=== PATIENT | female | born 1980 | race Caucasian/White ===

== ENCOUNTER 2017-05-20 21:01 | Emergency (ER) | payer SELFPAY ==
--- NOTE | 2017-05-20 21:31 | PDOC ---
History of Present Illness - History of Present Illness Initial Comments: 05/20/17 21:42 The patient is a 36 year old female, who presents to the emergency department with, progressively worsening lower back pain since last night. The patient states she had a lumbar puncture 3 days ago to rule out aseptic meningitis and states the spinal tap was normal. However, the patient states that since last night she has had progressively worsening lower back pain around the site of the spinal tap. The patient states the lower back pain is made worse while lying down. She denies any recent falls or trauma. She denies any numbness, tingling or loss of sensation. She denies any bowel or bladder incontinence. She denies any weakness. She denies recent chest pain or shortness of breath. PAST MEDICAL HISTORY: Splenectomy PAST SURGICAL HISTORY: Splenectomy FAMILY HISTORY: no pertinent history SOCIAL HISTORY: Pt lives with family and is employed. MEDICATIONS: reviewed ALLERGIES: As per nursing notes Review of Systems General: No fevers or chills, no weakness, no weight loss HEENT: No change in vision. No sore throat,. No ear pain CardioVascular: No chest pain or shortness of breath Respiratory:No cough, or wheezing. Gastrointestinal: no nausea, vomiting, diarrhea or constipation, No rectal bleeding Genitourinary: No dysuria, hematuria, or frequency Musculoskeletal: (+) Lower back pain. No joint pain. No neck pain. Neurologic: No headache, vertigo, dizziness or loss of consciousness Psychiatric: nor depression Skin: No rashes or easy bruising Endocrine: no increased thirst or abnormal weight change Allergic: no skin or latex allergy All other systems reviewed and normal GENERAL: The patient is awake, alert, and fully oriented, in no acute distress. HEAD: Normal with no signs of trauma. EYES: Pupils equal, round and reactive to light, extraocular movements intact, sclera anicteric, conjunctiva clear. BACK: (+) Multiple areas that appear to be puncture sites for the lumbar puncture with mild ecchymosis. No increase in warmth. No drainage or purulence. EXTREMITIES: Normal range of motion, no edema. NEUROLOGICAL: Normal speech, normal gait. PSYCH: Normal mood, normal affect. SKIN: Warm, Dry, normal turgor, no rashes or lesions noted. <Claude Garrido - Last Filed: 05/20/17 22:03> - General History Source: Patient Exam Limitations: No Limitations - History of Present Illness Initial Comments: A portion of this note was documented by scribe services under my direction. I have reviewed the details of the note, within reason, and agree with the documentation. The case summary and management plan written by me. Assessment and plan: This is a 36-year-old female who had a lumbar puncture and now is complaining of increased pain in the area. Patient denies any neurological complaints no change in bowel or bladder continence no numbness or tingling of her extremities. Patient denies any fevers or chills. Patient had an ultrasound of the area that does not show any collections other than some small tissue edema. Patient cannot take anti-inflammatories so was told to take Tylenol and ice and [id number] lidocaine patch <Chance Dhillon I - Last Filed: 05/20/17 22:20> - General Chief Complaint: Back Pain Stated Complaint: LOW BACK PAIN Time Seen by Provider: 05/20/17 21:06 Past History <Claude Garrido - Last Filed: 05/20/17 22:03> <Chance Dhillon I - Last Filed: 05/20/17 22:20> - Past Medical History Allergies/Adverse Reactions: Allergies Allergy/AdvReac Type Severity Reaction Status Date / Time Sulfa (Sulfonamide Allergy Mild Rash Verified 05/20/17 21:05 Antibiotics) NSAIDS (Non-Steroidal AdvReac Mild Verified 05/20/17 21:05 Anti-Inflamma Home Medications: Ambulatory Orders NK [No Known Home Medication] 05/20/17 *DC/Admit/Observation/Transfer - Attestations Scribe Attestion: 05/20/17 21:50 Documentation prepared by Claude Garrido, acting as medical illustrator for Chance Dhillon MD. <Claude Garrido - Last Filed: 05/20/17 22:03> - Discharge Dispostion Admit: No <Chance Dhillon I - Last Filed: 05/20/17 22:20> Diagnosis at time of Disposition: Low back pain Qualifiers: Chronicity: acute Back pain laterality: unspecified Sciatica presence: without sciatica Qualified Code(s): M54.5 - Low back pain - Discharge Dispostion Disposition: HOME Condition at time of disposition: Good - Referrals Referrals: Chalino Sosa MD [Primary Care Provider] - - Patient Instructions Additional Instructions: For the pain take Tylenol 2 extra strength tablets every 4-6 hours if needed. In addition to that purchase some lidocaine patches they are called salonpas and use as directed on the box they are [id number]. Return if you develop any fever, chills, numbness or weakness in your legs or neurological symptoms. Return to the emergency department immediately with ANY new, persistent or worsening symptoms. Continue any medications as previously prescribed by your physician. You should follow up with your primary doctor as soon as possible regarding today's emergency department visit. . Please make sure your doctor reviews the results of your emergency evaluation. Thank you for coming to the Emergency Department today for your care. It was a pleasure to see you today. Please note that your evaluation is INCOMPLETE until you follow-up with your doctor. - Post Discharge Activity
[2017-05-20 22:25] VITALS: BP 148/97; PULSE 110; TEMP 98.3; BMI 40.7
== END 2017-05-20 22:25 | disposition home or self-care (01) ==
LOC: FER 21:01
DX: M54.5 Low back pain (principal)
CPT/HCPCS: 76604; 99282-25

== ENCOUNTER 2017-07-20 04:36 | Inpatient (IN) | payer MEDICARE ==
[2017-07-20] MEDS ORDERED: MEROPENEM 1 GM in DEXTROSE 5%-WATER 100 ML IVPB ONE (05:02)
[2017-07-20] MEDS ORDERED: morphine CARPU-JECT 2 MG/1 ML DISP.SYRIN IVPUSH ONE (05:06)
[2017-07-20] MEDS ORDERED: SODIUM CHLORIDE 1,000 ML IV STA ×2 (05:08→06:24)
--- NOTE | 2017-07-20 05:08 | PDOC ---
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 Was originally diagnosed with UTi 10 days ago and got a 5 day course of macrobid for 5 days, after which further testing including a CT scan led to a diagnosis of Right pyelonephritis and a 5 day course of Bactrim. The pain has been increasing each days since then, now 9/10 on palpation of both CVA as well as dysuria with dark urine and febrile sensation. Patient not usually prone to UTI's. Last course of prednisone 6 weeks ago. Past History - Past Medical History Allergies/Adverse Reactions: Allergies Allergy/AdvReac Type Severity Reaction Status Date / Time codeine Allergy Severe Rash Verified 07/20/17 05:39 Sulfa (Sulfonamide Allergy Mild Rash Verified 07/20/17 04:38 Antibiotics) metoclopramide [From Reglan] Allergy Verified 07/20/17 04:38 NSAIDS (Non-Steroidal AdvReac Mild Verified 07/20/17 04:38 Anti-Inflamma Home Medications: Ambulatory Orders NK [No Known Home Medication] 07/20/17 Anemia: Yes (ITP) COPD: No - Surgical History Abdominal Surgery: Yes (SPLEENECTOMY) Appendectomy: Yes Cholecystectomy: Yes - Reproductive History Tubal Ligation: Yes - Immunization History Immunization Up to Date: Yes - Suicide/Smoking/Psychosocial Hx Smoking History: Never smoked Have you smoked in the past 12 months: No Number of Cigarettes Smoked Daily: 2 Information on smoking cessation initiated: No Hx Alcohol Use: No Drug/Substance Use Hx: No Substance Use Type: None Review of Systems - Review of Systems Able to Perform ROS?: Yes Constitutional: Yes: Chills, Fever HEENTM: No: Symptoms Reported Respiratory: No: Symptoms reported Cardiac (ROS): No: Symptoms Reported ABD/GI: No: Symptoms Reported : Yes: See HPI Musculoskeletal: No: Symptoms Reported Integumentary: No: Symptoms Reported Neurological: No: Symptoms reported All Other Systems: Reviewed and Negative *Physical Exam - Vital Signs Last Vital Signs Temp Pulse Resp BP Pulse Ox 98.2 F 91 H 18 128/79 98 07/20/17 05:00 07/20/17 04:38 07/20/17 04:38 07/20/17 04:38 07/20/17 04:38 - Physical Exam General Appearance: Yes: Nourished, Moderate Distress, Obese HEENT: positive: EOMI, PRASANNA, Normal ENT Inspection Respiratory/Chest: positive: Lungs Clear, Normal Breath Sounds. negative: Chest Tender, Respiratory Distress Cardiovascular: positive: Regular Rhythm, Regular Rate, S1, S2 Gastrointestinal/Abdominal: positive: Normal Bowel Sounds, Soft, Protuberent. negative: Tender Musculoskeletal: positive: CVA Tenderness (R) (exquisite tenderness), CVA Tenderness (L) Extremity: positive: Normal Capillary Refill, Normal Inspection, Normal Range of Motion Integumentary: positive: Normal Color, Dry, Warm Neurologic: positive: Fully Oriented, Alert, Normal Mood/Affect, Normal Response ED Treatment Course - LABORATORY CBC & Chemistry Diagram: 07/20/17 05:30 07/20/17 05:30 Medical Decision Making - Medical Decision Making 07/20/17 05:20 36f with h/o ITP s.p splenectomy presents with 10 days of increasingly painful pyelonephritis. Will start with basic labs, blood and urine cultures, Meropenem IV 1g and 2mg of morphine due to her NSAID allergy. Although there is no fever recorded on this patient, it is notable that did take 2 extra strength tylenol when she felt febrile earlier. In addition, she is exquisitely tender of the the right and left flank. The choice of Meropenem as an empiric antibiotic today is justified by the presence of risk factors for an MDR gram negative infection including use of TMP /SMX within the past 3 month and splenectomy status The patient will most likely be admitted to med surg. 07/20/17 06:55 Patient signed out to Dr. Maldonado *DC/Admit/Observation/Transfer Diagnosis at time of Disposition: Pyelonephritis - Referrals - Patient Instructions - Post Discharge Activity
--- NOTE | 2017-07-20 05:27 | PDOC ---
Attending Attestation - Resident Resident Name: DanaJuvenal - ED Attending Attestation I have performed the following: I have examined & evaluated the patient, The case was reviewed & discussed with the resident, I agree w/resident's findings & plan, Exceptions are as noted - HPI HPI: 07/20/17 05:23 "The patient is a year old female, with a significant past medical history of ITP (s/p splenectomy, intermittently on steroids), who presents to the emergency department via EMS with bilateral flank pain and dysuria for 10 days. Per patient, she was initially on Macrobid for 5 days. Pt had no improvement in her symptoms. She returned to her PCP, who ordered CT scan that revealed pyelonephritis and started her on bactrim. She completed her course of bactrim but states that her symptoms have only worsened. She reports bilateral flank pain, worse on the right. The patient describes her urine as dark in coloration. She reports subjective fevers as well, for which she took tylenol this AM. She denies recent nausea, vomit, diarrhea or constipation. Denies abdominal pain. She denies recent chest pain or shortness of breath. Past surgical history: Splenectomy. Social history: Nonsmoker. Denies EtOH use and recreational drug use. " - Physicial Exam PE: 07/20/17 05:26 "GENERAL: Awake, alert, and fully oriented, in no acute distress. HEAD: No signs of trauma EYES: PERRLA, EOMI, sclera anicteric, conjunctiva clear ENT: Auricles normal inspection, hearing grossly normal, nares patent, oropharynx clear without exudates. Moist mucosa NECK: Nontender, no stepoffs, Normal ROM, supple, no lymphadenopathy, JVD, or masses LUNGS: Breath sounds equal, clear to auscultation bilaterally. No wheezes, and no crackles HEART: Regular rate and rhythm, normal S1 and S2, no murmurs, rubs or gallops ABDOMEN: +Suprapubic TTP, normoactive bowel sounds. No guarding, no rebound. No masses BACK: + R CVAT EXTREMITIES: Normal range of motion, no edema. No clubbing or cyanosis. No cords, erythema, or tenderness NEUROLOGICAL: Cranial nerves II through XII intact. 5/5 strength and sensation in all extremities, Normal speech, normal gait, normal cerebellar function SKIN: Warm, Dry, normal turgor, no rashes or lesions noted. " - Medical Decision Making 07/20/17 05:27 36 F with likely pyelonephritis refractory to outpt tx with macrobid and bactrim. Pt with subjective fevers at home but afebrile here. - Labs, cultures - IV abx - Admit <Cody Cazares - Last Filed: 07/20/17 05:23> Attestations - Attestations 07/20/17 06:22 Documentation prepared by Matthias Dobbins, acting as medical office asst for Cody Cazares MD. <Matthias Dobbins - Last Filed: 07/20/17 06:23>
[2017-07-20] MEDS ORDERED: morphine CARPU-JECT 2 MG/1 ML DISP.SYRIN ONE (05:30)
[2017-07-20 05:49] LABS: BASO % 0.5 % (0-2.0); EOS % 3.3 % (0-4.5); HEMATOCRIT 41.1 % (32.4-45.2); HEMOGLOBIN 13.7 GM/dL (10.7-15.3); LYMPH % 40.4 % (8-40); MCH 32.1 pg (25.7-33.7); MCHC 33.3 g/dl (32.0-36.0); MEAN CELL VOLUME 96.3 fl (80-96); MEAN PLT VOLUME 9.1 fl (7.5-11.1); NEUT % 45.8 % (42.8-82.8); PLATELET COUNT 414 K/MM3 (134-434); RBC 4.26 M/mm3 (3.60-5.2); RDW 14.1 % (11.6-15.6); WHITE BLOOD COUNT 14.5 K/mm3 (4.0-10.0)
[2017-07-20 06:08] LABS: ALBUMIN 3.6 g/dl (3.4-5.0); ALK PHOS 103 U/L (45-117); ANION GAP 9 (8-16); BILIRUBIN,TOTAL 0.3 mg/dL (0.2-1.0); BLOOD UREA NITROGEN 12 mg/dL (7-18); CALCIUM 8.3 mg/dL (8.5-10.1); CHLORIDE 107 mmol/L (98-107); CO2 23 mmol/L (21-32); CREATININE 0.6 mg/dL (0.55-1.02); GLUCOSE,RANDOM 112 mg/dL (74-106); SGPT/ALT 29 U/L (12-78); SODIUM 139 mmol/L (136-145); TOT PROT 6.5 g/dl (6.4-8.2)
[2017-07-20 06:15] LABS: POTASSIUM 4.6 mmol/L (3.5-5.1); SGOT/AST 31 U/L (15-37)
[2017-07-20] MEDS ORDERED: KETOROLAC TROMETHAMINE 30 MG/1 ML VIAL IVPUSH ONE (06:24)
--- NOTE | 2017-07-20 07:13 | PDOC ---
*Physical Exam - Vital Signs Last Vital Signs Temp Pulse Resp BP Pulse Ox 98.2 F 91 H 18 128/79 98 07/20/17 05:00 07/20/17 04:38 07/20/17 04:38 07/20/17 04:38 07/20/17 04:38 - Physical Exam Comments: 07/20/17 07:16 General Appearance: Nourished. No Apparent Distress HEENT: EOMI, PRASANNA. No Pharyngeal Erythema, Tonsillar Exudate, Tonsillar Erythema Neck: No Cervical Lymphadenopathy Respiratory/Chest: Lungs Clear, Normal Breath Sounds. No Crackles, Rales, Rhonchi, Wheezing Cardiovascular: Regular Rhythm, Regular Rate. No Murmur, Gallops, Rubs Gastrointestinal/Abdominal: Normal Bowel Sounds, Soft. No Guarding, Rebound, Tenderness Musculoskeletal: Bilateral CVA Tenderness more pronounced on the right Extremity: Normal Capillary Refill Integumentary: Normal Color, Dry, Warm Neurologic: Fully Oriented, Alert, Normal Mood/Affect, Normal Response, ED Treatment Course - LABORATORY CBC & Chemistry Diagram: 07/20/17 05:30 07/20/17 05:30 - ADDITIONAL ORDERS Additional order review: Laboratory Results 07/20/17 05:30 Sodium 139 Potassium 4.6 Chloride 107 Carbon Dioxide 23 Anion Gap 9 BUN 12 Creatinine 0.6 Creat Clearance w eGFR > 60 Random Glucose 112 H Calcium 8.3 L Total Bilirubin 0.3 D AST 31 ALT 29 Alkaline Phosphatase 103 Total Protein 6.5 Albumin 3.6 07/20/17 05:30 RBC 4.26 MCV 96.3 H MCHC 33.3 RDW 14.1 MPV 9.1 D Neutrophils % 45.8 D Lymphocytes % 40.4 H D Monocytes % 10.0 Eosinophils % 3.3 D Basophils % 0.5 - Medications Given in the ED: ED Medications Discontinued Medications Generic Name Dose Route Start Last Admin Trade Name Freq PRN Reason Stop Dose Admin Meropenem 1 gm/ Dextrose 100 mls @ 200 mls/hr 07/20/17 05:02 07/20/17 05:57 IVPB 07/20/17 05:31 200 mls/hr ONCE ONE Administration Sodium Chloride 1,000 mls @ 1,000 mls/hr 07/20/17 05:08 07/20/17 05:57 Normal Saline - IV 07/20/17 06:07 1,000 mls/hr ASDIR STA Administration Ketorolac Tromethamine 15 mg 07/20/17 06:24 07/20/17 06:43 Toradol Injection - IVPUSH 07/20/17 06:25 Not Given ONCE ONE Morphine Sulfate 2 mg 07/20/17 05:06 07/20/17 05:57 Morphine Injection - IVPUSH 07/20/17 05:07 2 mg ONCE ONE Administration Progress Note - Progress Note Progress Note: The patient is a 36 year old female who was diagnosed with pyelonephritis on an outpatient basis with continued worsening symptoms despite outpatient antibiotic treatment. The patient is pending a UA and likely admission for iv antibiotics. Medical Decision Making - Medical Decision Making 07/20/17 09:40 We discussed the case with the hospitalist team who accepted the patient for admission. We discussed the results and plan with the patient who voiced understanding and is agreeable with the plan. *DC/Admit/Observation/Transfer Diagnosis at time of Disposition: Pyelonephritis - Discharge Dispostion Condition at time of disposition: Stable Decision to Admit order: Yes - Referrals - Patient Instructions - Post Discharge Activity
[2017-07-20] MEDS ORDERED: morphine CARPU-JECT 4 MG/1 ML DISP.SYRIN IVPUSH ONE (08:41)
[2017-07-20] MEDS ORDERED: morphine SULFATE 4 MG/ML VIAL ONE (08:51)
[2017-07-20 09:07] LABS: URINE APPEARANCE CLEAR; URINE BILIRUBIN NEGATIVE (<2.0 mg/dL); URINE BLOOD 2+ (NEGATIVE); URINE COLOR LTYELLOW; URINE GLUCOSE (UA) NEGATIVE (NEGATIVE); URINE KETONE NEGATIVE (NEGATIVE); URINE LEUK ESTERASE NEGATIVE (NEGATIVE); URINE NITRITE NEGATIVE (NEGATIVE); URINE UROBILINOGEN NEGATIVE mg/dL (0.2-1.0)
[2017-07-20 09:20] LABS: URINE PROTEIN 2+ (NEGATIVE)
[2017-07-20 09:23] LABS: EPI CELLS RARE /HPF (FEW)
--- NOTE | 2017-07-20 11:04 | HP ---
Admitting History and Physical - Admission Chief Complaint: back pain, failed outpt UTI therapy History of Present Illness: This is a 36 year old female with pmhx of ITP Since age 9, s/p splenectomy 2006 , who presents with worsening back pain. 10 days ago pt was seen and treated in urgent care for UTI. Put on macrobid after 5 days symptoms were not improving, she was then put on keflex and saw now improvement. Last night she had subjective fever, back pain worsened R > L and she continues to have dysuria and frequency with urination. This is her first UTI after pregnancies. She denies sob, cp, abdominal pain, n/v. 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 History of Recent Travel: No Home Medications - Allergies Allergies/Adverse Reactions: Allergies Allergy/AdvReac Type Severity Reaction Status Date / Time codeine Allergy Severe Rash Verified 07/20/17 05:39 Sulfa (Sulfonamide Allergy Mild Rash Verified 07/20/17 04:38 Antibiotics) metoclopramide [From Reglan] Allergy Verified 07/20/17 04:38 NSAIDS (Non-Steroidal AdvReac Mild Verified 07/20/17 04:38 Anti-Inflamma - Home Medications Home Medications: Ambulatory Orders NK [No Known Home Medication] 07/20/17 Review of Systems - Review of Systems Constitutional: reports: No Symptoms, Fever Eyes: reports: No Symptoms HENT: reports: No Symptoms Neck: reports: No Symptoms Cardiovascular: reports: No Symptoms Respiratory: reports: No Symptoms Gastrointestinal: reports: No Symptoms Genitourinary: reports: Flank Pain Musculoskeletal: reports: No Symptoms Integumentary: reports: No Symptoms Neurological: reports: No Symptoms Endocrine: reports: No Symptoms Hematology/Lymphatic: reports: No Symptoms Psychiatric: reports: No Symptoms Physical Examination Vital Signs: Vital Signs Temperature 98.2 F 07/20/17 05:00 Pulse Rate 75 07/20/17 09:42 Respiratory Rate 20 07/20/17 09:42 Blood Pressure 112/60 07/20/17 09:42 O2 Sat by Pulse Oximetry (%) 98 07/20/17 09:42 Constitutional: Yes: Calm Eyes: Yes: Conjunctiva Clear HENT: Yes: Atraumatic Neck: Yes: Supple Cardiovascular: Yes: Regular Rate and Rhythm, S1, S2 Respiratory: Yes: Regular, CTA Bilaterally Gastrointestinal: Yes: Normal Bowel Sounds, Soft, Abdomen, Obese Renal/: Yes: CVA Tenderness - Left, CVA Tenderness - Right (R>L) Musculoskeletal: Yes: WNL, Back Pain Edema: Yes (pedal ) Edema: LLE: Trace, RLE: Trace Integumentary: Yes: Tattoos Neurological: Yes: Alert, Oriented, Cran Nerves II-XII Intact Psychiatric: Yes: Alert, Oriented Labs: CBC, BMP 07/20/17 05:30 07/20/17 05:30 Imaging - Results Cat Scan: Pending, Other (s) Problem List - Problems (1) Pyelonephritis Code(s): N12 - TUBULO-INTERSTITIAL NEPHRITIS, NOT SPCF ACUTE OR CHRONIC (2) Low back pain Code(s): M54.5 - LOW BACK PAIN Qualifiers: Chronicity: acute Back pain laterality: unspecified Sciatica presence: without sciatica Qualified Code(s): M54.5 - Low back pain Assessment/Plan Assessment: 36 year old female with ITP s/p splenectomy admitted with failed outpt UTI therapy and pyleonephritis Plan: 1. Sepsis d/t R sided pyleo - - UA negative, blood/urine cx pending - Obtain non contrast CT - Start zosyn - Continue IVF - ID consulted 2. DVT - Lovenox sq Visit type - Emergency Visit Emergency Visit: Yes ED Registration Date: 07/20/17 Care time: The patient presented to the Emergency Department on the above date and was hospitalized for further evaluation of their emergent condition. - New Patient This patient is new to me today: Yes Date on this admission: 07/20/17 - Critical Care Critical Care patient: No Hospitalist Screening - Colonoscopy Questionnaire Colonoscopy Questionnaire: Colonoscopy Questionnaire - Patient: 50 - 75 years old and never had a screening colonoscopy: Unknown History of colon or rectal polyps, or CA: Unknown History of IBD, Crohn's disease or UC: Unknown History of abdominal radiation therapy as a child: Unknown - Relative: 1 with colon or rectal CA, or polyps at age 60 or younger: Unknown Colon or rectal CA diagnosed at age 45 or younger: Unknown Multiple relatives with colon or rectal CA: Unknown - Outcome: Screening Result: Negative Screen
[2017-07-20] MEDS ORDERED: ACETAMINOPHEN 325 MG TABLET (FP) PO PRN (11:19)
[2017-07-20] MEDS ORDERED: KETOROLAC TROMETHAMINE 15 MG/ML VIAL IVPUSH PRN (11:19)
[2017-07-20] MEDS ORDERED: oxyCODONE HCL 5 MG TABLET PO PRN (11:19)
[2017-07-20] MEDS ORDERED: SODIUM CHLORIDE 1,000 ML IV SCH (11:30)
[2017-07-20] MEDS ORDERED: oxyCODONE HCL 5 MG TABLET ONE (13:20)
[2017-07-20] MEDS ORDERED: ACETAMINOPHEN 325 MG TABLET (FP) ONE (13:25)
--- NOTE | 2017-07-20 14:51 | CON.ID ---
Consult Consult Specialty:: infectious diseases Reason for Consultation:: pyelonephritis rt side - History of Present Illness Chief Complaint: abd pain and flank pain rt side History of Present Illness: this is a 36 y/o obese femal who developed abd pain and [facility] where she was diagnosed with uti and was started on macrobid patient did not improve with that and developed falank pain so was switched to another abx she according to her did not still improve and came to the hospital c/o of rt flank pain currently she does complain of rt flank pain she was worked up and foud to have leukocytosis and ct scan did not show much findings - History Source History Provided By: Patient Limitations to Obtaining History: No Limitations - Past Surgical History Past Surgical History: Yes: Appendectomy, Cholecystectomy, Splenectomy - Alcohol/Substance Use Hx Alcohol Use: No History of Substance Use: reports: None - Smoking History Smoking history: Current every day smoker Have you smoked in the past 12 months: No Aproximately how many cigarettes per day: 2 - Social History ADL: Independent 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 History of Recent Travel: No Home Medications - Allergies Allergies/Adverse Reactions: Allergies Allergy/AdvReac Type Severity Reaction Status Date / Time codeine Allergy Severe Rash Verified 07/20/17 05:39 Sulfa (Sulfonamide Allergy Mild Rash Verified 07/20/17 04:38 Antibiotics) metoclopramide [From Reglan] Allergy Verified 07/20/17 04:38 NSAIDS (Non-Steroidal AdvReac Mild Verified 07/20/17 04:38 Anti-Inflamma - Home Medications Home Medications: Ambulatory Orders NK [No Known Home Medication] 07/20/17 Review of Systems - Review of Systems Constitutional: reports: Fever Eyes: reports: No Symptoms HENT: reports: No Symptoms, Ocular Prosthesis Cardiovascular: reports: No Symptoms Respiratory: reports: No Symptoms Gastrointestinal: reports: No Symptoms Genitourinary: reports: Flank Pain, Other Musculoskeletal: reports: No Symptoms Integumentary: reports: No Symptoms Neurological: reports: No Symptoms Endocrine: reports: No Symptoms Hematology/Lymphatic: reports: No Symptoms Psychiatric: reports: No Symptoms Physical Exam Vital Signs: Vital Signs Temperature 98.5 F 07/20/17 13:50 Pulse Rate 80 07/20/17 13:50 Respiratory Rate 20 07/20/17 13:50 Blood Pressure 144/61 07/20/17 13:50 O2 Sat by Pulse Oximetry (%) 100 06/07/18 13:50 Constitutional: Yes: Well Nourished, Calm, Mild Distress, Obese Eyes: Yes: Conjunctiva Clear Neck: Yes: Supple, Trachea Midline Cardiovascular: Yes: Regular Rate and Rhythm Respiratory: Yes: Regular, CTA Bilaterally Gastrointestinal: Yes: Normal Bowel Sounds, Soft Renal/: Yes: CVA Tenderness - Right Musculoskeletal: Yes: WNL Extremities: Yes: WNL Neurological: Yes: Alert, Oriented Psychiatric: Yes: Alert, Oriented Labs: CBC, BMP 07/20/17 05:30 07/20/17 05:30 Imaging - Results Cat Scan: Report Reviewed, Image Reviewed Assessment/Plan this patient who had utii and now wiht flank pain with leukocytosis who ahs been treated for uti with multiple abx ct scan with no real findings uti rt flank pain pyelo obesity plan will start patient on zosyn hydration await for cx reports will make final decision then
[2017-07-20] MEDS ORDERED: morphine CARPU-JECT 2 MG/1 ML DISP.SYRIN IVPUSH PRN (15:10)
[2017-07-20 15:11] VITALS: BMI 37.1
[2017-07-20] MEDS ORDERED: PIPERACILLIN/TAZOBACTAM 3.375 GM VIAL IVPB ONE ×2 (15:25→17:46)
[2017-07-20] MEDS ORDERED: DEXTROSE 5%-WATER - 50 ML IVPB ONE ×2 (15:25→17:46)
[2017-07-20] MEDS: PIPERACILLIN/TAZOB 3.375 GM 3.375 GM in DEXTROSE 5%-WATER - 50 ML IVPB SCH ×2 (15:28→17:51)
[2017-07-20] MEDS ORDERED: PIPERACILLIN/TAZOB 3.375 GM 3.375 GM in DEXTROSE 5%-WATER - 50 ML IVPB SCH (15:30)
[2017-07-20 16:45] VITALS: BP 140/74; PULSE 81; TEMP 98.7
[2017-07-20] MEDS ORDERED: oxyCODONE HCL 5 MG TABLET PO ONE (18:00)
[2017-07-21] MEDS ORDERED: ENOXAPARIN NA (PORCINE) 40 MG/0.4 ML DISP.SYRIN SQ SCH (10:00)
== END 2017-07-20 19:15 | disposition left against medical advice (07) | DRG 463 ==
LOC: JER 04:36 → JERBED 09:40 → J8W 14:09
PROVIDERS: ADMIT Hospitalist; ATTEND Nurse Practitioner Acute Care
DX: N10 Acute pyelonephritis (principal); E66.9 Obesity, unspecified; Z68.37 Body mass index [BMI] 37.0-37.9, adult; F17.210 Nicotine dependence, cigarettes, uncomplicated; M54.5 Low back pain
CPT/HCPCS: 36415; 74176; 80053; 81003; 81015; 84703; 85025; 87040; 87086; 99284-25; J7030

== ENCOUNTER 2017-08-07 06:54 | Emergency (ER) | payer SELFPAY ==
[2017-08-07 07:17] VITALS: TEMP 98.2; BMI 41.1
[2017-08-07] MEDS ORDERED: ONDANSETRON 4 MG/2 ML VIAL IVPUSH ONE (07:30)
[2017-08-07] MEDS ORDERED: morphine CARPU-JECT 4 MG/1 ML DISP.SYRIN IVPUSH ONE ×2 (07:30→09:07)
[2017-08-07] MEDS ORDERED: SODIUM CHLORIDE 1,000 ML IV STA (07:30)
--- NOTE | 2017-08-07 07:33 | PDOC ---
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 The pain feels similiar to 2 weeks ago when she was dx with the pyelonephritis but worse. pt states she was fine from when she left until monday and hasnt received any further treatment or abx. on exam pt well appearing in on distress abd soft nontender, +cva tenderness on R suspect possible pyelo, consider stone, ?msk cause will obtain blood work, ua if pt has +hematuria, will obtain US pain meds/abx anticiptae admission - Physicial Exam PE: 08/07/17 11:50 see above - Medical Decision Making 08/07/17 11:47 pt labs reviewed, noted for leukocyotsis , suspect may be due to recent infusion pts CT negative UA is clear without signs of infection, culture sent on reexam, pt does have some muscular tenderness in the L lower back - ?msk in nature will treat pt supportively will have pt fu with PMD return precautions were dsicussed I discussed the physical exam findings, ancillary test results and final diagnoses with the patient. I answered all of the patient's questions. The patient was satisfied with the care received and felt comfortable with the discharge plan and treatment plan. The patient will call their primary care physician within 24 hours to arrange follow-up and will return to the Emergency Department with any new, persistent or worsening symptoms.
[2017-08-07] MEDS ORDERED: MORPHINE SULFATE 10 MG/1 ML *VIAL ONE ×2 (07:49→09:11)
[2017-08-07] MEDS ORDERED: ALBUTEROL SO4 2.5/IPRATROPIUM 0.5 INH SOL 3 ML VIAL.NEB. NEB ONE (07:50)
[2017-08-07] MEDS ORDERED: ONDANSETRON 4 MG/2 ML VIAL ONE (07:50)
--- NOTE | 2017-08-07 08:11 | PDOC ---
History of Present Illness - General Chief Complaint: Pain, Acute Stated Complaint: LOWER RIGHT ABDOMINAL PAIN Time Seen by Provider: 08/07/17 07:19 History Source: Patient Exam Limitations: No Limitations - History of Present Illness Initial Comments: 08/07/17 08:05 Patient is a 36F with history of ITP and splenectomy here today complaining of 1 day of right flank pain. Patient was admitted two weeks ago with pyelonephritis diagnosis. Patient had normal UA, but was on antibiotics before draw and was symptomatic. CT scan at the time showed no intra-abdominal process. Patient left AMA after receiving zosyn and took no medications as outpatient. Patient endorses fevers, chills, nausea, and vomiting. Patient denies chest pain, shortness of breath. Denies dysuria and changes in urination. Patient has long history of recurrent UTIs. Patient received gamma globulin transfusion several days ago. Past History - Past Medical History Allergies/Adverse Reactions: Allergies Allergy/AdvReac Type Severity Reaction Status Date / Time codeine Allergy Severe Rash Verified 08/07/17 06:56 Sulfa (Sulfonamide Allergy Mild Rash Verified 08/07/17 06:56 Antibiotics) metoclopramide [From Reglan] Allergy Verified 08/07/17 06:56 NSAIDS (Non-Steroidal AdvReac Mild Verified 08/07/17 06:56 Anti-Inflamma Home Medications: Ambulatory Orders Tramadol HCl 50 mg PO QID PRN #12 tablet MDD 4 08/07/17 Anemia: Yes (ITP) COPD: No - Surgical History Abdominal Surgery: Yes (SPLEENECTOMY) Appendectomy: Yes Cholecystectomy: Yes - Reproductive History Tubal Ligation: Yes - Immunization History Immunization Up to Date: Yes - Suicide/Smoking/Psychosocial Hx Smoking History: Never smoked Have you smoked in the past 12 months: No Number of Cigarettes Smoked Daily: 2 Information on smoking cessation initiated: No 'Breaking Loose' booklet given: 07/20/17 Hx Alcohol Use: No Drug/Substance Use Hx: No Substance Use Type: None Hx Substance Use Treatment: No Review of Systems - Review of Systems Comments:: 08/07/17 08:11 GENERAL/CONSTITUTIONAL: No fever or chills. No weakness. HEAD, EYES, EARS, NOSE AND THROAT: No change in vision. No sore throat. CARDIOVASCULAR: No chest pain or shortness of breath RESPIRATORY: No cough, wheezing, or hemoptysis. GASTROINTESTINAL: +nausea, vomiting. No diarrhea or constipation. GENITOURINARY: No dysuria, frequency, or change in urination. MUSCULOSKELETAL: No joint or muscle swelling or pain. No neck or back pain. SKIN: No rash NEUROLOGIC: No headache, vertigo, loss of consciousness, or change in strength/ sensation. ENDOCRINE: No increased thirst. No abnormal weight change HEMATOLOGIC/LYMPHATIC: No anemia, easy bleeding, or history of blood clots. ALLERGIC/IMMUNOLOGIC: No hives or skin allergy. *Physical Exam - Vital Signs Last Vital Signs Temp Pulse Resp BP Pulse Ox 98.2 F 84 20 117/71 98 08/07/17 06:57 08/07/17 06:57 08/07/17 06:57 08/07/17 06:57 08/07/17 06:57 - Physical Exam Comments: 08/07/17 08:11 GENERAL: Awake, alert, and fully oriented HEAD: No signs of trauma, normocephalic, atraumatic EYES: PERRLA, EOMI, sclera anicteric, conjunctiva clear ENT: Auricles normal inspection, hearing grossly normal, nares patent, oropharynx clear without exudates. Moist mucosa NECK: Normal ROM, supple, no lymphadenopathy, JVD, or masses LUNGS: No distress, speaks full sentences, clear to auscultation bilaterally HEART: Regular rate and rhythm, normal S1 and S2, no murmurs, rubs or gallops, peripheral pulses normal and equal bilaterally. ABDOMEN: +R sided CVA, mild suprapubic tenderness, no rebound/guarding. EXTREMITIES: Normal inspection, Normal range of motion, no edema. No clubbing or cyanosis. NEUROLOGICAL: Cranial nerves II through XII grossly intact. Normal speech, normal gait, no focal sensorimotor deficits SKIN: Warm, Dry, normal turgor, no rashes or lesions noted. ED Treatment Course - LABORATORY CBC & Chemistry Diagram: 08/07/17 08:10 08/07/17 08:10 - RADIOLOGY Radiology Studies Ordered: Category Date Time Status CXRPORT [CHEST X-RAY PORTABLE*] [RAD] Stat Radiology 08/07/17 07:41 Ordered Medical Decision Making - Medical Decision Making 08/07/17 08:13 Patient is 36F with history of pyelonephritis, ITP, splenectomy here today complaining of right flank pain. +CVA tenderness. DDx includes, but is not limited to: pyelonephritis, nephrolithiasis, pancreatitis. Will evaluate with abdominal labs. Will treat with zofran, morphine, fluids. 08/07/17 11:40 Laboratory Tests 08/07/17 08/07/17 08/07/17 08:10 08:10 08:10 WBC 13.9 H Hgb 14.4 Plt Count 497 H D BUN 10 Creatinine 0.6 Urine Nitrite Negative Ur Leukocyte Esterase Negative Urine WBC (Auto) <1 Urine RBC (Auto) 1 CBC shows leukocytosis. CMP reassuring. UA normal. CT added due to concern for other intra-abdominal pathologies. CT done shows no acute process. No signs of pyelonephritis, pancreatits. Patient reassessed, pain has improved. Pain worse with palpation along musculature of back. Believe patient's pain is likely MSK in origin. Given return precautions, will discharge. *DC/Admit/Observation/Transfer Diagnosis at time of Disposition: Back pain - Discharge Dispostion Disposition: HOME Condition at time of disposition: Good Decision to Admit order: No - Prescriptions Prescriptions: Tramadol HCl 50 mg PO QID PRN #12 tablet MDD 4 PRN Reason: Pain - Referrals Referrals: [facility] [place] [facility] [place] [Provider Group] - Patient Instructions Printed Discharge Instructions: DI for Low Back Pain, DI for Abdominal Pain- Adult Additional Instructions: Please return if you have any new, worsening or concerning symptoms. Please take ibuprofen and tylenol for your pain. Please follow up with your primary care physician this week. A referral for primary care has been provided for you. - Post Discharge Activity
[2017-08-07 08:19] LABS: BASO % 1.2 % (0-2.0); EOS % 2.7 % (0-4.5); HEMATOCRIT 43.6 % (32.4-45.2); HEMOGLOBIN 14.4 GM/dL (10.7-15.3); LYMPH % 34.3 % (8-40); MCH 31.4 pg (25.7-33.7); MCHC 33.1 g/dl (32.0-36.0); MEAN CELL VOLUME 94.8 fl (80-96); MEAN PLT VOLUME 8.3 fl (7.5-11.1); MONO % 6.8 % (3.8-10.2); PLATELET COUNT 497 K/MM3 (134-434); RDW 14.1 % (11.6-15.6); WHITE BLOOD COUNT 13.9 K/mm3 (4.0-10.0)
[2017-08-07 08:29] LABS: URINE APPEARANCE CLEAR; URINE BILIRUBIN NEGATIVE (<2.0 mg/dL); URINE COLOR LTYELLOW; URINE GLUCOSE (UA) NEGATIVE (NEGATIVE); URINE KETONE NEGATIVE (NEGATIVE); URINE LEUK ESTERASE NEGATIVE (NEGATIVE); URINE NITRITE NEGATIVE (NEGATIVE); URINE UROBILINOGEN NEGATIVE mg/dL (0.2-1.0)
[2017-08-07 08:34] LABS: URINE PROTEIN 2+ (NEGATIVE)
[2017-08-07 08:36] LABS: EPI CELLS RARE /HPF (FEW); URINE MUCUS RARE
[2017-08-07 08:48] LABS: ALK PHOS 98 U/L (45-117); ANION GAP 10 (8-16); BILIRUBIN,TOTAL 0.5 mg/dL (0.2-1.0); BLOOD UREA NITROGEN 10 mg/dL (7-18); CHLORIDE 110 mmol/L (98-107); CO2 19 mmol/L (21-32); CREATININE 0.6 mg/dL (0.55-1.02); GLUCOSE,RANDOM 100 mg/dL (74-106); LIPASE 117 U/L (73-393); SGPT/ALT 29 U/L (12-78); SODIUM 139 mmol/L (136-145); TOT PROT 7.2 g/dl (6.4-8.2)
[2017-08-07 08:59] LABS: POTASSIUM 5.4 mmol/L (3.5-5.1); SGOT/AST 33 U/L (15-37)
[2017-08-07 11:26] VITALS: BP 112/75; PULSE 73
== END 2017-08-07 11:52 | disposition home or self-care (01) ==
LOC: JER 06:54
PROC: 3E033NZ Introduction of Analgesics, Hypnotics, Sedatives into Peripheral Vein, Percutaneous Approach (ICD-10-PCS; principal; 2017-08-07)
PROC: 3E033NZ Introduction of Analgesics, Hypnotics, Sedatives into Peripheral Vein, Percutaneous Approach (ICD-10-PCS; 2017-08-07)
PROC: 3E033GC Introduction of Other Therapeutic Substance into Peripheral Vein, Percutaneous Approach (ICD-10-PCS; 2017-08-07)
PROC: 3E033GC Introduction of Other Therapeutic Substance into Peripheral Vein, Percutaneous Approach (ICD-10-PCS; 2017-08-07)
DX: M54.5 Low back pain (principal); D69.3 Immune thrombocytopenic purpura; Z87.448 Personal history of other diseases of urinary system; Z90.81 Acquired absence of spleen
CPT/HCPCS: 36415; 71045-TC-FY; 74177-TC; 80053; 81003; 81015; 83690; 84703; 85025; 87086; 99283-25; J7030

== ENCOUNTER 2017-10-17 12:00 | Emergency (ER) | payer SELFPAY ==
[2017-10-17 12:21] VITALS: BMI 40.7
--- NOTE | 2017-10-17 12:58 | PDOC ---
History of Present Illness - General Chief Complaint: Wound Stated Complaint: ABCESS/BOIL Time Seen by Provider: 10/17/17 12:36 History Source: Patient Exam Limitations: Clinical Condition - History of Present Illness Initial Comments: 10/17/17 12:53 Patient with history of ITP present with complain of abscess to left perineal area for 3 days which is very painful. Patient reported very painful with ambulation or to sit. Patient request only to be seen by an M.D. if abscess needs to be drained. Denies fever or any other symptoms Timing/Duration: other (3 days) Past History - Past Medical History Allergies/Adverse Reactions: Allergies Allergy/AdvReac Type Severity Reaction Status Date / Time codeine Allergy Severe Rash Verified 10/17/17 12:21 Sulfa (Sulfonamide Allergy Mild Rash Verified 10/17/17 12:21 Antibiotics) metoclopramide [From Reglan] Allergy Verified 10/17/17 12:21 NSAIDS (Non-Steroidal AdvReac Mild Verified 10/17/17 12:21 Anti-Inflamma Home Medications: Ambulatory Orders NK [No Known Home Medication] 10/17/17 Anemia: Yes (ITP) COPD: No - Surgical History Abdominal Surgery: Yes (SPLEENECTOMY) Appendectomy: Yes Cholecystectomy: Yes - Reproductive History Tubal Ligation: Yes - Immunization History Immunization Up to Date: Yes - Suicide/Smoking/Psychosocial Hx Smoking History: Never smoked Have you smoked in the past 12 months: No Number of Cigarettes Smoked Daily: 2 Information on smoking cessation initiated: No 'Breaking Loose' booklet given: 07/20/17 Hx Alcohol Use: No Drug/Substance Use Hx: No Substance Use Type: None Hx Substance Use Treatment: No Review of Systems - Review of Systems Able to Perform ROS?: Yes Is the patient limited Slovak proficient: No Constitutional: No: Chills, Diaphoresis, Fever, Loss of Appetite, Malaise, Night Sweats, Weakness, Weight Stable, Unintentional Wgt. Loss, Unexplained wgt Loss, Other HEENTM: No: Eye Pain, Blurred Vision, Tearing, Recent change in vision, Double Vision, Cataracts, Ear Pain, Ocular Prothesis, Ear Discharge, Nose Pain, Nose Congestion, Tinnitus, Nose Bleeding, Hearing Loss, Throat Pain, Throat Swelling , Mouth Pain, Dental Problems, Difficulty Swallowing, Mouth Swelling, Other Respiratory: No: Cough, Orthopnea, Shortness of Breath, SOB with Exertion, SOB at Rest, Stridor, Wheezing, Productive cough, Hemoptysis, Other Cardiac (ROS): No: Chest Pain, Edema, Irregular Heart Rate, Lightheadedness, Palpitations, Syncope, Chest Tightness, Other ABD/GI: No: Abdominal Distended, Abd. Pain w/ defecation, Blood Streaked Bowels , Constipated, Diarrhea, Difficulty Swallowing, Nausea, Poor Appetite, Poor Fluid Intake, Rectal Bleeding, Vomiting, Indigestion, Abdominal cramping, Tarry Stools, Other Musculoskeletal: No: Back Pain, Gout, Joint Pain, Joint Swelling, Muscle Pain, Muscle Weakness, Neck Pain, Joint Stiffness, Other Integumentary: Yes: See HPI, Lumps (perineal abscess) All Other Systems: Reviewed and Negative *Physical Exam - Vital Signs Last Vital Signs Temp Pulse Resp BP Pulse Ox 98.7 F 84 16 158/78 100 10/17/17 12:18 10/17/17 12:18 10/17/17 12:18 10/17/17 12:18 10/17/17 12:18 - Physical Exam Comments: 10/17/17 12:55 GENERAL: Well developed, well nourished. Awake and alert. No acute distress. HEENT: Normocephalic, atraumatic. PERRLA, EOMI. No conjunctival pallor. Sclera are non- icteric. Moist mucous membranes. Oropharynx is clear. NECK: Supple. Full ROM. No JVD. Carotid pulses 2+ and symmetric, without bruits. No thyromegaly. No lymphadenopathy. CARDIOVASCULAR: Regular rate and rhythm. No murmurs, rubs, or gallops. Distal pulses are 2+ and symmetric. PULMONARY: No evidence of respiratory distress. Lungs clear to auscultation bilaterally. No wheezing, rales or rhonchi. ABDOMINAL: Soft. Non-tender. Non-distended. No rebound or guarding. No organomegaly. Normoactive bowel sounds. MUSCULOSKELETAL Normal range of motion at all joints. No bony deformities or tenderness. No CVA tenderness. EXTREMITIES: No cyanosis. No clubbing. No edema. No calf tenderness. SKIN: 2 cm x 2 cm abscess to perineal area with surrounding erythema. No drainage or open wound to site NEUROLOGICAL: Alert, awake, appropriate. Cranial nerves 2-12 intact. No deficits to light touch and temperature in face, upper extremities and lower extremities. No motor deficits in the in face, upper extremities and lower extremities. Normoreflexic in the upper and lower extremities. Normal speech. Toes are down- going bilaterally. Gait is normal without ataxia. PSYCHIATRIC: Cooperative. Good eye contact. Appropriate mood and affect. General Appearance: Yes: Nourished, Appropriately Dressed, Moderate Distress Medical Decision Making - Medical Decision Making 10/17/17 12:56 Patient with history of ITP presenting with complain of three-day history of perineal abscess which is very painful. Exam shows 2 x 2 perineal abscess with surrounding erythema. Patient does not want abscess drained by mid-level provider and only wants to be seen by an M.D. Patient transferred to Main ED for follow-up care and case discussed with attending physician 10/17/17 15:18 *DC/Admit/Observation/Transfer Diagnosis at time of Disposition: Perineal abscess - Referrals - Patient Instructions - Post Discharge Activity
--- NOTE | 2017-10-17 13:48 | PDOC ---
Attending Attestation - Resident Resident Name: Raven Shaikh - HPI HPI: 10/17/17 15:30 Pt presents to the ED complaining of tender swelling to her L buttock that began two days prior to admission. Also complaining of fevers that started yesterday. Denies nausea and vomiting. DEnies pain on defecation. - Physicial Exam PE: 10/17/17 15:34 Agree with resident exam. patient appears uncomfortable. + 2-3 cm abscess that is confined to the L buttock. - Medical Decision Making 10/17/17 15:37 Pt presents to the ED complaining of abscess to the l buttock and fever. Given history of ITP, will check labs prior to I and D. will perform I and D in the ED unless platlets are critically low. Will treat with antibiotics given fever.
[2017-10-17] MEDS ORDERED: morphine CARPU-JECT 2 MG/1 ML DISP.SYRIN IVPUSH ONE ×2 (14:38→17:28)
[2017-10-17] MEDS ORDERED: CLINDAMYCIN 600MG PREMIX IVPB 600 MG/50 ML BAG IVPB ONE ×2 (14:39→15:15)
[2017-10-17] MEDS ORDERED: morphine SULFATE 4 MG/ML VIAL ONE ×2 (15:15→17:38)
[2017-10-17 16:19] LABS: BASO % 0.7 % (0-2.0); EOS % 1.8 % (0-4.5); HEMATOCRIT 45.8 % (32.4-45.2); HEMOGLOBIN 15.1 GM/dL (10.7-15.3); LYMPH % 28.7 % (8-40); MCH 31.6 pg (25.7-33.7); MEAN CELL VOLUME 95.9 fl (80-96); MEAN PLT VOLUME 8.1 fl (7.5-11.1); MONO % 4.2 % (3.8-10.2); NEUT % 64.6 % (42.8-82.8); PLATELET COUNT 506 K/MM3 (134-434); RBC 4.77 M/mm3 (3.60-5.2); RDW 14.8 % (11.6-15.6); WHITE BLOOD COUNT 16.7 K/mm3 (4.0-10.0)
[2017-10-17 16:33] LABS: INR 0.96 (0.83-1.09); PROTHROMBIN TIME (PATIENT) 10.8 SEC (9.7-13.0)
[2017-10-17 16:36] LABS: ACTIVATED PTT 38.3 SECONDS (25.2-36.5)
[2017-10-17 16:50] LABS: ANION GAP 12 MMOL/L (8-16); BLOOD UREA NITROGEN 11 mg/dL (7-18); CHLORIDE 106 mmol/L (98-107); CO2 22 mmol/L (21-32); GLUCOSE,RANDOM 135 mg/dL (74-106); SODIUM 140 mmol/L (136-145)
[2017-10-17 16:53] LABS: ALK PHOS 161 U/L (45-117); BILIRUBIN,TOTAL 0.3 mg/dL (0.2-1.0); CREATININE 0.5 mg/dL (0.55-1.02); SGPT/ALT 74 U/L (12-78); TOT PROT 7.3 g/dl (6.4-8.2)
[2017-10-17 17:04] LABS: POTASSIUM 4.7 mmol/L (3.5-5.1); SGOT/AST 25 U/L (15-37)
[2017-10-17] MEDS ORDERED: LIDOCAINE HCL 2% (20ML MULTI-DOSE VIAL) NR ONE (18:15)
[2017-10-17 18:47] VITALS: BP 152/75; PULSE 85; TEMP 98.1
--- NOTE | 2017-10-17 18:48 | PDOC ---
History of Present Illness - General Chief Complaint: Wound Stated Complaint: ABCESS/BOIL Time Seen by Provider: 10/17/17 12:36 History Source: Patient Exam Limitations: No Limitations - History of Present Illness Initial Comments: 10/17/17 23:20 Pt is a 36yo f with PMH of ITP, splenectomy presenting to ED with perirectal abscess present for 3 days. Pt stated she had this before 3 years ago and was sent to the OR for drainage due to ITP. She admits to pain around the abscess. Pt stats she had a fever yesterday of 101. Has been taking Tylenol for pain, but it does nothing. Abscess has not started to drain. Pt does not shave in that area. Past History - Past Medical History Allergies/Adverse Reactions: Allergies Allergy/AdvReac Type Severity Reaction Status Date / Time codeine Allergy Severe Rash Verified 10/17/17 12:21 Sulfa (Sulfonamide Allergy Mild Rash Verified 10/17/17 12:21 Antibiotics) metoclopramide [From Reglan] Allergy Verified 10/17/17 12:21 NSAIDS (Non-Steroidal AdvReac Mild Verified 10/17/17 12:21 Anti-Inflamma Home Medications: Ambulatory Orders Clindamycin HCl 300 mg PO TID #21 capsule 10/17/17 Oxycodone HCl/Acetaminophen [Percocet 5-325 mg Tablet] 1 tab PO Q6H PRN #4 tablet MDD 4 10/17/17 Anemia: Yes (ITP) COPD: No - Surgical History Abdominal Surgery: Yes (SPLEENECTOMY) Appendectomy: Yes Cholecystectomy: Yes - Reproductive History Tubal Ligation: Yes - Immunization History Immunization Up to Date: Yes - Suicide/Smoking/Psychosocial Hx Smoking History: Never smoked Have you smoked in the past 12 months: No Number of Cigarettes Smoked Daily: 2 Information on smoking cessation initiated: No 'Breaking Loose' booklet given: 07/20/17 Hx Alcohol Use: No Drug/Substance Use Hx: No Substance Use Type: None Hx Substance Use Treatment: No Review of Systems - Review of Systems Is the patient limited Turkish proficient: No Constitutional: Yes: Chills, Fever HEENTM: No: Recent change in vision Respiratory: No: Cough, Shortness of Breath Cardiac (ROS): No: Chest Pain, Palpitations, Syncope : No: Burning, Dysuria, Flank Pain Musculoskeletal: No: Back Pain, Muscle Pain Integumentary: Yes: Lesions (abscess to L perineal area.) *Physical Exam - Vital Signs Last Vital Signs Temp Pulse Resp BP Pulse Ox 98.7 F 84 16 158/78 100 10/17/17 12:18 10/17/17 12:18 10/17/17 12:18 10/17/17 12:18 10/17/17 12:18 - Physical Exam General Appearance: Yes: Appropriately Dressed, Mild Distress, Obese HEENT: positive: EOMI, PRASANNA, Pharynx Normal. negative: Pale Conjunctivae, Scleral Icterus (R), Scleral Icterus (L), Pharyngeal Erythema Neck: positive: Trachea midline, Supple. negative: Lymphadenopathy (R), Lymphadenopathy (L) Respiratory/Chest: positive: Lungs Clear. negative: Crackles, Rales, Rhonchi, Wheezing Cardiovascular: positive: Regular Rhythm, Regular Rate, S1, S2. negative: JVD, Murmur Vascular Pulses: Carotid (R): 2+, Carotid (L): 2+, Dorsalis-Pedis (R): 2+, Doralis-Pedis (L): 2+ Female Pelvic Exam: positive: normal external exam. negative: Bartholin mass Gastrointestinal/Abdominal: positive: Normal Bowel Sounds, Soft. negative: Distended, Guarding, Rebound, Tenderness Musculoskeletal: negative: CVA Tenderness Extremity: positive: Normal Capillary Refill Integumentary: positive: Normal Color, Dry, Warm, Other (Abscess in L perineal area. 2x2cm. fluctuation around pustule measuring about 4x4cm. very tender, slight erythema. 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, Fully Oriented, Alert, Normal Mood/ Affect, Normal Response, Motor Strength 5/5 Procedures - Incision and Drainage I&D Site: Right: Perirectal Anesthesia: 2% Lidocaine Volume(ml): 8 Blade Size: 11 Attempts: 2 Iodinated Packin/ in ED Treatment Course - LABORATORY CBC & Chemistry Diagram: 10/17/17 15:14 10/17/17 15:14 - ADDITIONAL ORDERS Additional order review: Laboratory Results 10/17/17 10/17/17 15:14 15:14 PT with INR 10.80 INR 0.96 PTT (Actin FS) 38.3 H Sodium 140 Potassium 4.7 Chloride 106 Carbon Dioxide 22 Anion Gap 12 BUN 11 Creatinine 0.5 L Creat Clearance w eGFR > 60 Random Glucose 135 H Calcium 9.0 Total Bilirubin 0.3 AST 25 ALT 74 Alkaline Phosphatase 161 H Total Protein 7.3 Albumin 4.0 10/17/17 15:14 RBC 4.77 MCV 95.9 MCHC 33.0 RDW 14.8 MPV 8.1 Neutrophils % 64.6 Lymphocytes % 28.7 Monocytes % 4.2 Eosinophils % 1.8 Basophils % 0.7 - Medications Given in the ED: ED Medications Discontinued Medications Generic Name Dose Route Start Last Admin Trade Name Freq PRN Reason Stop Dose Admin Clindamycin Phosphate 600 mg in 50 mls @ 100 mls/hr 10/17/17 14:39 10/17/17 15:35 Cleocin 600 Mg Premix Ivpb - IVPB 10/17/17 15:08 100 mls/hr ONCE ONE Administration Protocol Morphine Sulfate 4 mg 10/17/17 14:38 10/17/17 15:30 Morphine Injection - IVPUSH 10/17/17 14:39 4 mg ONCE ONE Administration Morphine Sulfate 2 mg 10/17/17 17:28 10/17/17 17:42 Morphine Injection - IVPUSH 10/17/17 17:29 2 mg ONCE ONE Administration Oxycodone/Acetaminophen 1 combo 10/17/17 12:51 10/17/17 13:04 Percocet 5/325 - PO 10/17/17 12:52 1 combo ONCE ONE Administration Medical Decision Making - Medical Decision Making 10/17/17 23:26 Pt is a 36yo f with PMH of ITP, splenectomy presenting to ED with perirectal abscess present for 3 days. DDx: abscess, fornier's gangrene, cellulitis Pt hemodynamically stable and afebrile. Abscess palpated and tender. Erythema does not extend past pustule. Low suspicion for cellulitis/ fornier's gangrene. Will draw labs to assess platelet level before attempting I&D. labs showed WBC at 16. Platelets elevated. Low likelihood of bleeding out. Will attempt i&d. Please see procedure note. Pt highly anxious throughout process. Pt was given topical lidocaine. Upon evaluation after topical application, slight drainage from superficial pustule. Abscess extremely tender. Pt could not tolerate lidocaine injection. Pt would not comply with i&d. Dr. Eubanks consoled pt and pt agreed to go ahead with procedure. Incision was made and drained. Pt would not tolerate blunt dissection of pockets. I attempted to pack the incision. Pt could not tolerate packing. Able to place 1/4 inch of packing. Pt given strict return precautions and advised to come back in 2 days for reevaluation. Pt agreed. 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 Pt hemodynamically stable and d.c home 10/17/17 23:32 *DC/Admit/Observation/Transfer Diagnosis at time of Disposition: Perineal abscess - Discharge Dispostion Disposition: HOME Condition at time of disposition: Stable Decision to Admit order: No - Prescriptions Prescriptions: Clindamycin HCl 300 mg PO TID #21 capsule Oxycodone HCl/Acetaminophen [Percocet 5-325 mg Tablet] 1 tab PO Q6H PRN #4 tablet MDD 4 PRN Reason: Pain - Referrals - Patient Instructions Printed Discharge Instructions: DI for Incision and Drainage of a Skin Abscess Additional Instructions: You were seen here today for an abscess. We drained it as much as we could and packed it. Please apply warm compresses to help with the drainage. I have prescribed antibiotics and a pain medication for you to take. Please come back to the ED in 2 days for reevaluation. Please come back to the ED sooner if: the abscess gets worse, you develop fever , the pain gets worse, or if any new concerning symptom develops. Thank you. - Post Discharge Activity
== END 2017-10-17 18:53 | disposition home or self-care (01) ==
LOC: JER 12:00
PROC: 0W9N0ZZ Drainage of Female Perineum, Open Approach (ICD-10-PCS; principal; 2017-10-17)
DX: L02.215 Cutaneous abscess of perineum (principal)
CPT/HCPCS: 36415; 80053; 85025; 85610; 85730; 99283-25

== ENCOUNTER 2018-03-25 08:18 | Emergency (ER) | payer SELFPAY ==
[2018-03-25 08:28] VITALS: BP 137/78; PULSE 94; TEMP 98.7; BMI 39.8
[2018-03-25] MEDS ORDERED: morphine CARPU-JECT 2 MG/1 ML DISP.SYRIN IVPUSH ONE (09:09)
[2018-03-25] MEDS ORDERED: MORPHINE SULFATE 2 MG/ML VIAL ONE (09:24)
[2018-03-25 09:52] LABS: BASO % 1.3 % (0-2.0); HEMATOCRIT 44.1 % (32.4-45.2); HEMOGLOBIN 15.2 GM/dL (10.7-15.3); LYMPH % 27.6 % (8-40); MCHC 34.5 g/dl (32.0-36.0); MEAN CELL VOLUME 95.5 fl (80-96); MONO % 6.2 % (3.8-10.2); NEUT % 61.9 % (42.8-82.8); PLATELET COUNT 507 K/MM3 (134-434); RBC 4.61 M/mm3 (3.60-5.2); RDW 14.8 % (11.6-15.6); WHITE BLOOD COUNT 12.9 K/mm3 (4.0-10.0)
[2018-03-25 09:55] LABS: URINE APPEARANCE SLCLOUDY; URINE BILIRUBIN NEGATIVE (<2.0 mg/dL); URINE COLOR STRAW; URINE GLUCOSE (UA) NEGATIVE (NEGATIVE); URINE KETONE NEGATIVE (NEGATIVE); URINE LEUK ESTERASE NEGATIVE (NEGATIVE); URINE NITRITE NEGATIVE (NEGATIVE); URINE PROTEIN 1+ (NEGATIVE); URINE UROBILINOGEN NEGATIVE mg/dL (0.2-1.0)
[2018-03-25 09:56] LABS: HCG,QUALITATIVE URINE Negative
--- NOTE | 2018-03-25 09:57 | PDOC ---
History of Present Illness - General Chief Complaint: Back Pain Stated Complaint: BACK PAIN Time Seen by Provider: 03/25/18 09:04 History Source: Sibling Exam Limitations: No Limitations - History of Present Illness Initial Comments: 03/25/18 09:54 37 y/o female presents to the with complaints of right back pain since this morning. Patient states completed Macrobid 2 days ago for urinary tract infection. Patient denies fever, chills, nausea weakness or dizziness. Patient does state history of pyelonephritis last July which required her to to be admitted at [facility]. 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 Timing/Duration: 24 hours Severity: moderate Associated Symptoms: reports: other Past History - Travel Traveled outside of the country in the last 30 days: No Close contact w/someone who was outside of country & ill: No - Past Medical History Allergies/Adverse Reactions: Allergies Allergy/AdvReac Type Severity Reaction Status Date / Time codeine Allergy Severe Rash Verified 03/25/18 08:25 Sulfa (Sulfonamide Allergy Mild Rash Verified 03/25/18 08:25 Antibiotics) metoclopramide [From Reglan] Allergy Verified 03/25/18 08:25 NSAIDS (Non-Steroidal AdvReac Mild Verified 03/25/18 08:25 Anti-Inflamma Home Medications: Ambulatory Orders NK [No Known Home Medication] 03/25/18 Anemia: Yes (ITP) COPD: No - Surgical History Abdominal Surgery: Yes (SPLEENECTOMY) Appendectomy: Yes Cholecystectomy: Yes - Reproductive History Tubal Ligation: Yes - Immunization History Immunization Up to Date: Yes - Suicide/Smoking/Psychosocial Hx Smoking History: Unknown if ever smoked Have you smoked in the past 12 months: No Number of Cigarettes Smoked Daily: 2 'Breaking Loose' booklet given: 07/20/17 Hx Alcohol Use: No Drug/Substance Use Hx: No Substance Use Type: None Hx Substance Use Treatment: No Patient Lives Alone: No Lives with/in: children Review of Systems - Review of Systems Able to Perform ROS?: No Constitutional: No: Symptoms Reported HEENTM: No: Symptoms Reported Respiratory: No: Symptoms reported Cardiac (ROS): No: Symptoms Reported ABD/GI: No: Symptoms Reported : Yes: Flank Pain Musculoskeletal: Yes: Back Pain (rt ) Integumentary: No: Symptoms Reported Neurological: No: Symptoms reported Endocrine: No: Symptoms Reported Hematologic/Lymphatic: No: Symptoms Reported *Physical Exam - Vital Signs Last Vital Signs Temp Pulse Resp BP Pulse Ox 98.7 F 94 H 20 137/78 99 03/25/18 08:27 03/25/18 08:27 03/25/18 08:27 03/25/18 08:27 03/25/18 08:27 - Physical Exam General Appearance: Yes: Nourished, Appropriately Dressed. No: Apparent Distress HEENT: positive: EOMI. negative: Pale Conjunctivae Neck: positive: Normal Thyroid Respiratory/Chest: positive: Lungs Clear, Normal Breath Sounds. negative: Respiratory Distress, Accessory Muscle Use Cardiovascular: positive: Regular Rhythm, Regular Rate. negative: Murmur Gastrointestinal/Abdominal: positive: Soft. negative: Tenderness Musculoskeletal: positive: CVA Tenderness (R) Extremity: positive: Normal Capillary Refill Integumentary: positive: Normal Color, Warm, Moist Neurologic: positive: Motor Strength 5/5 (ambulatory) Moderate Sedation - Procedure Monitoring Vital Signs: Procedure Monitoring Vital Signs Temperature 98.7 F 03/25/18 08:27 Pulse Rate 94 H 03/25/18 08:27 Respiratory Rate 20 03/25/18 08:27 Blood Pressure 137/78 03/25/18 08:27 O2 Sat by Pulse Oximetry (%) 99 03/25/18 08:27 ED Treatment Course - LABORATORY CBC & Chemistry Diagram: 03/25/18 09:45 03/25/18 09:45 - RADIOLOGY Radiology Studies Ordered: Category Date Time Status KIDNEY / RENAL US [US] Stat Ultrasound 03/25/18 09:10 Ordered - Medications Given in the ED: ED Medications Discontinued Medications Generic Name Dose Route Start Last Admin Trade Name Elisa PRN Reason Stop Dose Admin Morphine Sulfate 2 mg 03/25/18 09:09 03/25/18 09:47 Morphine Injection - IVPUSH 03/25/18 09:10 2 mg ONCE ONE Administration Medical Decision Making - Medical Decision Making 03/25/18 09:20 Chief complaint. Patient with recent diagnosis of UTI completed Macrobid 2 days ago. Patient now with continual right-sided pain concerning for kidney infection since she has had similar symptoms with a kidney infection last year. Patient has no other complaints presently. Exam. Patient with right CVA tenderness. Vital signs stable. No abdominal tenderness. Plan. Urinalysis urine culture urine along with CBC, comp morphine and renal ultrasound. 03/25/18 10:29 Laboratory Tests 03/25/18 03/25/18 03/25/18 09:45 09:45 09:47 WBC 12.9 H Hgb 15.2 Hct 44.1 Plt Count 507 H Absolute Neuts (auto) 8.0 Sodium 138 Potassium 4.7 Chloride 109 H Carbon Dioxide 22 Anion Gap 6 L BUN 12 Creatinine 0.6 Creat Clearance w eGFR > 60 Random Glucose 102 Calcium 9.2 Total Bilirubin 0.5 AST 14 L ALT 20 Alkaline Phosphatase 92 Total Protein 7.1 Albumin 4.1 Urine Protein 1+ H Ur Leukocyte Esterase Negative Urine WBC (Auto) 2 Urine RBC (Auto) <1 Ur Epithelial Cells Moderate Urine HCG, Qual Negative Chest Shows No Acute Findings or Pathology. Patient States That after Receiving the Morphine. Patient Be Discharged Home with Recommendations to Take Tylenol for discomfort. *DC/Admit/Observation/Transfer Diagnosis at time of Disposition: Low back pain - Discharge Dispostion Disposition: HOME Condition at time of disposition: Improved - Referrals Referrals: Chalino Sosa MD [Primary Care Provider] - - Patient Instructions Printed Discharge Instructions: DI for Low Back Pain Additional Instructions: Avoid movements that triggered discomfort. May take Tylenol for discomfort. May try a heating pad to the affected area - Post Discharge Activity
[2018-03-25 10:09] LABS: EPI CELLS MODERATE /HPF (FEW); URINE MUCUS RARE
[2018-03-25 10:21] LABS: ALBUMIN 4.1 g/dl (3.4-5.0); ALK PHOS 92 U/L (45-117); ANION GAP 6 MMOL/L (8-16); BILIRUBIN,TOTAL 0.5 mg/dL (0.2-1); BLOOD UREA NITROGEN 12 mg/dL (7-18); CALCIUM 9.2 mg/dL (8.5-10.1); CHLORIDE 109 mmol/L (98-107); CO2 22 mmol/L (21-32); CREATININE 0.6 mg/dL (0.55-1.3); GLUCOSE,RANDOM 102 mg/dL (74-106); POTASSIUM 4.7 mmol/L (3.5-5.1); SGOT/AST 14 U/L (15-37); SGPT/ALT 20 U/L (13-61); SODIUM 138 mmol/L (136-145); TOT PROT 7.1 g/dl (6.4-8.2)
== END 2018-03-25 10:45 | disposition home or self-care (01) ==
LOC: JER 08:18
PROC: 3E033NZ Introduction of Analgesics, Hypnotics, Sedatives into Peripheral Vein, Percutaneous Approach (ICD-10-PCS; principal; 2018-03-25)
DX: M54.5 Low back pain (principal); Z87.440 Personal history of urinary (tract) infections; Z86.2 Personal history of diseases of the blood and blood-forming organs and certain disorders involving the immune mechanism; D69.3 Immune thrombocytopenic purpura; Z88.2 Allergy status to sulfonamides; Z88.8 Allergy status to other drugs, medicaments and biological substances
CPT/HCPCS: 36415; 76775-TC; 80053; 81003; 81015; 84703; 85025; 87086; 99282-25

== ENCOUNTER 2018-05-17 17:56 | Emergency (ER) | payer SELFPAY ==
[2018-05-17 18:21] VITALS: BP 131/73; PULSE 81; TEMP 98.1; BMI 40.7
[2018-05-17] MEDS ORDERED: DEXAMETHASONE LIQUID 0.5 MG/5 ML 240 ML BULK BOTTLE PO ONE (18:30)
--- NOTE | 2018-05-17 18:31 | PDOC ---
History of Present Illness - General Chief Complaint: Rash Stated Complaint: shingles Time Seen by Provider: 05/17/18 18:25 History Source: Patient Exam Limitations: No Limitations - History of Present Illness Initial Comments: 05/17/18 18:37 came for eval of very itchy rash to right hip worsenig x 2 days. No fevers/ prodromal symptopms. No one else at home with same. Has suffered from . Has used no medications for relief. 05/17/18 18:45 Timing/Duration: unsure Severity: mild, moderate Associated Symptoms: reports: rash. denies: fever/chills Past History - Travel Traveled outside of the country in the last 30 days: No Close contact w/someone who was outside of country & ill: No - Past Medical History Allergies/Adverse Reactions: Allergies Allergy/AdvReac Type Severity Reaction Status Date / Time codeine Allergy Severe Rash Verified 05/17/18 18:11 Sulfa (Sulfonamide Allergy Mild Rash Verified 05/17/18 18:11 Antibiotics) metoclopramide [From Reglan] Allergy Verified 05/17/18 18:11 NSAIDS (Non-Steroidal AdvReac Mild Verified 05/17/18 18:11 Anti-Inflamma Home Medications: Ambulatory Orders Diphenhydramine HCl [Benadryl -] 25 mg PO Q8H PRN #21 capsule 05/17/18 Anemia: Yes (ITP) COPD: No - Surgical History Abdominal Surgery: Yes (SPLEENECTOMY) Appendectomy: Yes Cholecystectomy: Yes - Reproductive History Tubal Ligation: Yes - Immunization History Immunization Up to Date: Yes - Suicide/Smoking/Psychosocial Hx Smoking History: Current every day smoker Have you smoked in the past 12 months: Yes Number of Cigarettes Smoked Daily: 2 Information on smoking cessation initiated: No 'Breaking Loose' booklet given: 07/20/17 Hx Alcohol Use: No Drug/Substance Use Hx: No Substance Use Type: None Hx Substance Use Treatment: No Review of Systems - Review of Systems Able to Perform ROS?: Yes Is the patient limited Kyrgyz proficient: Yes Constitutional: Yes: Symptoms Reported, See HPI, Malaise. No: Fever HEENTM: Yes: See HPI, Eye Pain. No: Symptoms Reported, Nose Congestion Respiratory: No: Symptoms reported Musculoskeletal: Yes: See HPI. No: Symptoms Reported Integumentary: Yes: Symptoms Reported, Pruritus (to right hip and buttocks crease./ scaling and kerintonized/ consistant with appearance of Eczema ), Rash All Other Systems: Reviewed and Negative *Physical Exam - Vital Signs Last Vital Signs Temp Pulse Resp BP Pulse Ox 98.1 F 81 18 131/73 98 05/17/18 18:13 05/17/18 18:13 05/17/18 18:13 05/17/18 18:13 05/17/18 18:13 - Physical Exam General Appearance: Yes: Nourished, Appropriately Dressed, Apparent Distress, Mild Distress HEENT: positive: PRASANNA, Normal ENT Inspection, TMs Normal, Pharynx Normal Neck: positive: Supple. 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, Fully Oriented, Alert, Normal Mood/ Affect, Normal Response, Motor Strength 5/5 *DC/Admit/Observation/Transfer Diagnosis at time of Disposition: Rash and other nonspecific skin eruption - Discharge Dispostion Disposition: HOME Condition at time of disposition: Stable Decision to Admit order: No - Prescriptions Prescriptions: Diphenhydramine HCl [Benadryl -] 25 mg PO Q8H PRN #21 capsule PRN Reason: sneezing/cough - Referrals Referrals: Chalino Sosa MD [Primary Care Provider] - - Patient Instructions Printed Discharge Instructions: DI for Atopic Dermatitis - Adult Additional Instructions: Keep skin clean and moist. Avoid scratching- cooler showers/ no drying lotions Use Vaseline/Aquafore/heavy creams on rashes to keep very hydrated May use benadryl for itching You have been given 1 dose of Decadron 10mg as 1 dose of steroids. - Post Discharge Activity Forms/Work/School Notes: Back to Work
[2018-05-17] MEDS ORDERED: DEXAMETHASONE SOD PHOSPHATE 10 MG/1 ML VIAL ONE (18:34)
== END 2018-05-17 18:59 | disposition home or self-care (01) ==
LOC: JERFT 17:56
DX: L20.89 Other atopic dermatitis (principal)
CPT/HCPCS: 99281-25

== ENCOUNTER 2018-08-28 16:34 | Emergency (ER) | payer SELFPAY ==
[2018-08-28 16:54] VITALS: BP 138/73; PULSE 104; TEMP 98.9; BMI 40.7
[2018-08-28] MEDS ORDERED: LIDOCAINE 5% TOPICAL PATCH TP ONE (17:10)
[2018-08-28] MEDS ORDERED: LIDOCAINE 5% TOPICAL PATCH ONE (17:14)
--- NOTE | 2018-08-28 17:38 | PDOC ---
History of Present Illness - General Chief Complaint: Pain Stated Complaint: right hip pain Time Seen by Provider: 08/28/18 16:52 - History of Present Illness Initial Comments: 08/28/18 17:33 37 years old past medical history significant for ITP status post splenectomy status post recent herpes zoster to right lower back riding oral region presents with pain to light touch to area where she had her zoster. Patient completed course of Valtrex pain is sharp like electricity there is no rash over the area it is exacerbated by light touch and irritated by the lining of her pants. No fever no chills no chest pain or shortness of breath nausea vomiting no diarrhea no abdominal pain Past History - Past Medical History Allergies/Adverse Reactions: Allergies Allergy/AdvReac Type Severity Reaction Status Date / Time codeine Allergy Severe Rash Verified 08/28/18 16:35 Sulfa (Sulfonamide Allergy Mild Rash Verified 08/28/18 16:35 Antibiotics) metoclopramide [From Reglan] Allergy Verified 08/28/18 16:35 NSAIDS (Non-Steroidal AdvReac Mild Verified 08/28/18 16:35 Anti-Inflamma Home Medications: Ambulatory Orders Gabapentin [Neurontin] 100 mg PO TID #21 capsule 08/28/18 Anemia: Yes (ITP) COPD: No Other medical history: Shingles x 1 month ago,abcess to right hip s/p shingles. - Surgical History Abdominal Surgery: Yes (SPLEENECTOMY) Appendectomy: Yes Cholecystectomy: Yes - Reproductive History Tubal Ligation: Yes - Immunization History Immunization Up to Date: Yes - Suicide/Smoking/Psychosocial Hx Smoking History: Current every day smoker Have you smoked in the past 12 months: Yes Number of Cigarettes Smoked Daily: 2 Information on smoking cessation initiated: Yes 'Breaking Loose' booklet given: 07/20/17 Hx Alcohol Use: No Drug/Substance Use Hx: No Substance Use Type: None Hx Substance Use Treatment: No Review of Systems - Review of Systems Comments:: 08/28/18 17:33 ROS: A complete review of 10 out of 10 review of systems is taken and is negative apart from what is previously mentioned below and in the HPI. *Physical Exam - Vital Signs Last Vital Signs Temp Pulse Resp BP Pulse Ox 98.9 F 104 H 18 138/73 98 08/28/18 16:35 08/28/18 16:35 08/28/18 16:35 08/28/18 16:35 08/28/18 16:35 - Physical Exam Comments: 08/28/18 17:33 Vitals: Triage Vital signs reviewed General Appearance: no acute distress, well nourished well developed, Head: Atraumatic, Neck: Supple;No Nucal rigidity Chest Wall: Nontender Abdomen: Soft, non distended, normal bowel sounds, non tender to palpation Extremities: Full range of motion to all extremities, no cyanosis, clubbing, or edema Skin: Warm and dry, no rashes or lesions, no rash, no petechiae, very sensitive to palpation to light touch in the angle region no rash no infection Psych: normal mood, normal affect ED Treatment Course - Medications Given in the ED: ED Medications Discontinued Medications Generic Name Dose Route Start Last Admin Trade Name Elisa PRN Reason Stop Dose Admin Lidocaine 1 patch 08/28/18 17:10 08/28/18 17:17 Lidoderm Patch - TP 08/28/18 17:11 1 patch ONCE ONE Administration Medical Decision Making - Medical Decision Making 08/28/18 17:35 Well-appearing no apparent distress history examination consistent with postherpetic neuralgia. 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 lidocaine patch applied we'll prescribe lidocaine patch and short course of Neurontin with close primary care follow-up Addendum: patient appears to have left the emergency department prior to receiving her discharge papers however a diagnosis and course of action and plan and follow-up were discussed 08/28/18 18:43 *DC/Admit/Observation/Transfer Diagnosis at time of Disposition: Post herpetic neuralgia - Discharge Dispostion Disposition: ELOPED Condition at time of disposition: Stable Decision to Admit order: No - Prescriptions Prescriptions: Gabapentin [Neurontin] 100 mg PO TID #21 capsule - Referrals Referrals: [facility] [Provider Group] - Patient Instructions Printed Discharge Instructions: Lorenzo Additional Instructions: Gabapentin as prescribed follow-up in 1-2 days at the [facility] to discuss additional pain medication options. Return to ED for any concerns. - Post Discharge Activity
[2018-08-28] MEDS ORDERED: LIDOCAINE PATCH REMOVAL MC SCH (22:00)
== END 2018-08-28 17:20 | disposition left against medical advice (07) ==
LOC: FER 16:34
DX: B02.29 Other postherpetic nervous system involvement (principal); D69.3 Immune thrombocytopenic purpura; F17.210 Nicotine dependence, cigarettes, uncomplicated
CPT/HCPCS: 99282-25

== ENCOUNTER 2020-05-03 09:37 | Emergency (ER) | payer SELFPAY ==
[2020-05-03 09:46] VITALS: BP 174/81; PULSE 95; TEMP 97; BMI 46.0
[2020-05-03] MEDS ORDERED: valACYclovir HCL 1000 MG TABLET PO ONE (10:35)
[2020-05-03] MEDS ORDERED: valACYclovir HCL 500 MG TABLET (FP) ONE (10:46)
== END 2020-05-03 10:59 | disposition home or self-care (01) ==
LOC: JER 09:37 → SUPCPDRO 09:37 → JER 10:59
DX: M79.2 Neuralgia and neuritis, unspecified (principal)
CPT/HCPCS: 99283-25

== ENCOUNTER 2020-11-19 10:12 | Emergency (ER) | payer SELFPAY ==
[2020-11-19 10:35] VITALS: BP 159/89; PULSE 87; TEMP 98.4; BMI 46.0
[2020-11-19] MEDS ORDERED: oxyCODONE HCL 5 MG TABLET PO ONE (11:39)
[2020-11-19] MEDS ORDERED: GABAPENTIN 300 MG CAPSULE PO ONE (11:41)
[2020-11-19] MEDS ORDERED: GABAPENTIN 100 MG CAPSULE ONE (11:47)
[2020-11-19] MEDS ORDERED: oxyCODONE HCL 5 MG TABLET ONE (11:47)
== END 2020-11-19 12:00 | disposition home or self-care (01) ==
LOC: JERFT 10:12
DX: G62.9 Polyneuropathy, unspecified (principal)
CPT/HCPCS: 99283-25